=== PATIENT | male | born 1950 | race Caucasian/White ===

== ENCOUNTER 2016-11-16 17:56 | Observation (INO) | payer BC ==
--- NOTE | ~2016-11-16 | DS ---
Discharge Summary [place] [address] [facility] [place] [address] NAME: SHANTA VELÁZQUEZ : 46 STATUS : DIS IN PAT#: [id number] AGE: 66 ADM/REG DATE : 11/16/16 MR#: [id number] REPORT SERV DATE: 11/18/16 DICTATED BY: SARITA HERNANDEZ DATE: 11/17/16 REPORT STATUS : Draft TRANSCRIBED BY: MODL DATE: 11/17/16 ADMISSION DATE: 11/16/2016 DISCHARGE DATE: 11/17/2016 PRINCIPAL DIAGNOSIS: Acute exacerbation of chronic obstructive pulmonary disease. SECONDARY DIAGNOSES: Fever, type 2 diabetes. HISTORY OF PRESENT ILLNESS: Please see Dr. Szymanski's dictation on 11/16/2016. HOSPITAL COURSE: The patient was admitted with a COPD exacerbation. The patient received steroids and aerosols, actually with very quick normalization of his respiratory status. In fact, he was breathing back to baseline by 11/17/2016. He was given several doses of azithromycin and prednisone to go home with, otherwise can continue to use his home nebulized therapy. Follow up with Dr. Oni Frazier in one to two weeks. NANI/CORINNA Sarita Hernandez M.D. / [id number] CC: Jai Delacruz M.D.
--- NOTE | ~2016-11-16 | HP ---
History And Physical [place] [address] [place]. [address] NAME: SHANTA VELÁZQUEZ : 46 STATUS : ADM IN [facility]#: [id number] AGE: 66 ADM/REG DATE : 11/16/16 MR#: [id number] REPORT SERV DATE: 11/17/16 DICTATED BY: AROLDO BRAUN DATE: 11/16/16 REPORT STATUS : Draft TRANSCRIBED BY: CORINNA DATE: 11/16/16 DATE OF ADMISSION: 11/16/2016 CHIEF COMPLAINT: Fever and chills with increased shortness of breath. HISTORY OF PRESENT ILLNESS: This is a 66 years old male with a past medical history of COPD, on 3 L of home O2; history of pneumonia; and recurrent urinary tract infections. The patient presented with a chief complaint of worsening shortness of breath and flu-like symptoms for one day with, according to the patient, a whitish to greenish productive cough, sore throat, decreased p.o. intake today. He denies any dizziness. No lightheadedness. No chest pain. Also, with some complaints of myalgia/achy-like sensation. The patient denies any abdominal pain. No nausea or vomiting. The patient was having some wheezing upon arrival to the ER and was given a bronchodilator as well as some Solu-Medrol. REVIEW OF SYSTEMS: Please refer to HPI. PAST MEDICAL HISTORY: Of COPD, on 3 L of home O2; pneumonia; hypertension; type 2 diabetes; BPH; and recurring urinary tract infections. ASBESTOS MICROSCOPIST: Dr. Wilder and Dr. Frederick. FAMILY HISTORY: Bladder cancer. SOCIAL HISTORY: Quit tobacco abuse approximately four years ago. Smoked for approximately 45 years. No alcohol or illicit drugs. Currently, rehab participating in cardiac rehab as an outpatient. ALLERGIES: NO KNOWN ALLERGIES. HOME MEDICATIONS: Albuterol MDI two puffs inhaled every four hours p.r.n., albuterol neb p.r.n., ascorbic acid, aspirin 81 mg p.o. daily, Lipitor 40 mg p.o. q.h.s., Caltrate plus D 600 mg p.o. daily, cholecalciferol 1000 units p.o. daily, Breo Ellipta one puff inhaled daily, glucosamine, Victoza 0.6 mg subcu q.h.s., lisinopril 10 mg p.o. daily, metformin 250 mg p.o. b.i.d., omega-3 fatty acid 1200 mg p.o. daily, Flomax 0.4 mg p.o. q.h.s., Spiriva one cap inhaled daily, Culturelle, probiotic, nasal spray. PHYSICAL EXAMINATION: VITAL SIGNS: Temp of 100.1; blood pressure 128/67, current systolic blood pressure is 95 with a pulse of 106; respirations of 24; saturating 95% on 3 L. GENERAL: The patient is alert oriented x3, in no distress. HEENT: Pupils equal, round, and reactive to light. Extraocular muscles are intact. Moist mucous membranes. CARDIOVASCULAR: S1, S2. Regular rate and rhythm. No murmurs, rubs, or gallops. RESPIRATORY: No wheezing. No crackles. Mild decreased breath sounds at the bases. ABDOMEN: Positive bowel sounds. Soft, nontender. No rebound. No fluid wave. No History And Physical [address] [address] NAME: SHANTA VELÁZQUEZ : 46 STATUS : ADM IN [facility]#: [id number] AGE: 66 ADM/REG DATE : 11/16/16 MR#: [id number] REPORT SERV DATE: 11/17/16 DICTATED BY: AROLDO BRAUN DATE: 11/16/16 REPORT STATUS : Draft TRANSCRIBED BY: CORINNA DATE: 11/16/16 distention. EXTREMITIES: 2+ pulses bilaterally. No edema. NEURO: Cranial nerves 2 through 12 grossly intact. Moves all four extremities. No neuro focal deficits. IMAGING: Chest x-ray, no acute infiltrate per my interpretation. LABORATORY DATA: ABG with a pH of 7.45, pCO2 of 38, PO2 of 81 with FiO2 of 32. Sodium 140, potassium 4.4 with a chloride of 101, bicarb of 32, BUN of 13, creatinine 0.99 with a glucose of 126, albumin of 4.1, T bili of 1.3 with an alkaline phosphatase of 99, ALT of 22, AST of 10. White count of 8.1 with a hemoglobin of 14.9, platelet count 177. Influenza swab negative. ASSESSMENT AND PLAN: 1. Chronic obstructive pulmonary disease exacerbation. Has had some improvement while in the ER. No current wheezing at this time. However, the patient still with some complaint of dyspnea on exertion. 2. Febrile illness with flu-like symptoms. We will repeat influenza swab. We will follow up with UA. 3. Type 2 diabetes. We will currently order sliding-scale insulin for now. 4. Also, the patient will be on empiric antibiotics for chronic obstructive pulmonary disease exacerbation and febrile illness. Also, we will repeat chest x-ray in the morning after some hydration to rule out any underlying possible pneumonia and with a greenish productive cough. 5. The patient will be admitted to my colleague, who will attend to this patient's care. MANSI/MODL Aroldo Braun M.D. / [id number] CC: Jai Saha IV, M.D.
[~2016-11-16 17:56] MED LIST: ACET500CAP PO; ADVAIR250 INH; ASAB PO; CALTRA600D PO; CEFT5 PO; FISH OIL1200 MG PO; FLOMAX4 PO; FOLBEE PO; FOLIC ACID 400MCG PO; GLUCPH PO; LEVAQUIN750 MG PO; LIPITOR40 PO; MULTIPLE VIT PO; NASONEX NAS; NIASPAN750 PO; OSTEO BI-FLEX1 EACH PO; P20 PO; PRIN10 PO; PROAIR HFA INH; PROAIRRESP INH; PROBIOTIC; PROVENTSOL; PROVENTSOL INH; SPIRIVA INH; VERAMYST27.5 MCG NAS; VICTOZA SC; VICTOZA18 MG/3 ML SC; VITAMIN D31000 UNIT PO; VITC500 PO; ZITH250 PO; ZOCOR10 PO; [UNRECOGNIZED DRUG - OTHER] PO
[2016-11-16 18:30] LABS: ALLENS TEST Pos; BE (BASE EXCESS) 1.5 MEQ/L (0 +/- 2.5); CARBOXYHEMOGLOBIN 0.5 % (0-3); DEVICE NC; HCO3 (ACTUAL BICARBONATE) 25.4 MEQ/L (23-27); HEMOBLOGIN CONTENT 14.9 G/DL (14-18); INSTRUMENT SERIAL # 8087; METHEMOGLOBIN 0.1 % (0-3); O2 CONTENT 19.9 VOL% (18-24); PCO2 (CO2 TENSION) 38 MMHG (35-45); PO2 (O2 TENSION) 81 MMHG (79-93); SAMPLE Arterial; pH 7.45 (7.37-7.43)
[2016-11-16 19:22] LABS: BASOPHILS 0.4 %; BASOPHILS ABSOLUTE 0.03 10/3/uL (0.0-0.16); EOSINOPHILS 0.2 %; EOSINOPHILS ABSOLUTE 0.02 10/3/uL (0.0-0.53); ER CBC TAT 0 Hrs 08 Mins; HEMATOCRIT 45.3 % (40.0-51.0); HEMOGLOBIN 14.9 g/dL (13.6-17.8); IMMATURE GRANULOCYTES 0.2 %; IMMATURE GRANULOCYTES ABSOLUTE 0.02 10/3/uL (0.0-0.11); LYMPHOCYTES ABSOLUTE 0.57 10/3/uL (0.67-4.30); MEAN CORPUS HGB CONC 32.9 g/dL (32.0-36.0); MEAN CORPUSCULAR HEMOGLOB 29.4 pg (26.0-34.0); MEAN CORPUSCULAR VOLUME 89.3 fL (80-100); MEAN PLATELET VOLUME 10.5 fL (9.2-13.0); MONOCYTES 6.9 %; MONOCYTES ABSOLUTE 0.56 10/3/uL (0.21-1.20); NEUTROPHILS 85.3 %; NEUTROPHILS ABSOLUTE 6.89 10/3/uL (2.02-8.40); PLATELET COUNT 177 10/3/uL (150-400); RBC DISTRIBUTION WIDTH 14.3 % (12.0-16.0); RED CELL COUNT 5.07 10/6/uL (4.7-6.1); WHITE BLOOD CELLS 8.1 10/3/uL (4.5-10.5)
[2016-11-16 19:25] LABS: MANUAL DIFF NO %
[2016-11-16 19:32] LABS: A/G RATIO 1.4 (0.7-1.9); ALBUMIN 4.1 G/DL (3.5-5.0); BUN (BLOOD UREA NITROGEN) 13 MG/DL (6-23); CALCIUM, SERUM 9.4 MG/DL (8.5-10.4); CHLORIDE, SERUM 101 MMOL/L (96-112); CO2 (CARBON DIOXIDE) 32 MMOL/L (24-34); CREATININE 0.99 MG/DL (0.70-1.30); GFR AFRICAN AMERICAN 90 ML/MIN (>=60); GFR NON AFRICAN AMERICAN 78 ML/MIN (>=60); POTASSIUM, SERUM 4.4 MMOL/L (3.5-5.3); SGOT(AST) 10 U/L (5-40); SGPT(ALT) 22 U/L (5-65); SODIUM, SERUM 140 MMOL/L (135-148); TOTAL BILIRUBIN 1.3 MG/DL (0-1.2); TOTAL PROTEIN 7.1 G/DL (6.0-8.5)
[2016-11-16 19:33] LABS: ALKALINE PHOSPHATASE 99 U/L (45-117); GLUCOSE, SERUM 126 MG/DL (60-99)
[2016-11-16] MEDS ORDERED: PRIN10 PO (19:43)
[2016-11-16] MEDS ORDERED: GLUCPH PO (19:44)
[2016-11-16] MEDS ORDERED: VITC500 PO (19:50)
[2016-11-16] MEDS ORDERED: CALTRA600D PO (19:50)
[2016-11-16] MEDS ORDERED: FISH OIL1200 MG PO (19:50)
[2016-11-16] MEDS ORDERED: VITAMIN D31000 UNIT PO (19:50)
[2016-11-16] MEDS ORDERED: BREO ELLIPTA INH (19:51)
[2016-11-16] MEDS ORDERED: SPIRIVA INH (19:51)
[2016-11-16] MEDS ORDERED: OSTEO BI-FLEX1 EACH PO (19:51)
[2016-11-16] MEDS ORDERED: FLOMAX4 PO (19:52)
[2016-11-16 19:53] LABS: INFLUENZA A SCREEN NEGATIVE (NEGATIVE); INFLUENZA B SCREEN NEGATIVE (NEGATIVE)
[2016-11-16] MEDS ORDERED: LIPITOR40 PO (19:53)
[2016-11-16] MEDS ORDERED: CULTURELLE PROBIOTIC PO (19:54)
[2016-11-16] MEDS ORDERED: ASAB PO (19:54)
[2016-11-16] MEDS ORDERED: VERAMYST NASAL SPRAY NAS (19:55)
[2016-11-16] MEDS ORDERED: PROAIR HFA INH (19:55)
[2016-11-16] MEDS ORDERED: VICTOZA18 MG/3 ML SC (19:55)
[2016-11-16] MEDS ORDERED: ALBUTEROL0.083 % INH (19:56)
[2016-11-16 22:12] LABS: ASCORBIC ACID (UR NOT ORDER) 40 (NEG); BILIRUBIN, URINE NEGATIVE (NEG); ER URINALYSIS TAT 0 Hrs 13 Mins; KETONE, URINE TRACE MG/DL (NEG); LEUKOCYTE ESTERASE(NOT OR NEG (NEG); NITRITE (URINE) NEG (NEG); WBC (NOT ORDERED) (RFLEX) 2 (0-5)
[2016-11-16 23:53] LABS: PROCALCITONIN <0.05 ng/mL (<0.5)
[2016-11-17 05:25] LABS: BASOPHILS 0.4 %; BASOPHILS ABSOLUTE 0.02 10/3/uL (0.0-0.16); EOSINOPHILS 0 %; HEMATOCRIT 42.3 % (40.0-51.0); HEMOGLOBIN 13.8 g/dL (13.6-17.8); IMMATURE GRANULOCYTES 0.2 %; IMMATURE GRANULOCYTES ABSOLUTE 0.01 10/3/uL (0.0-0.11); MEAN CORPUS HGB CONC 32.6 g/dL (32.0-36.0); MEAN CORPUSCULAR VOLUME 88.9 fL (80-100); MEAN PLATELET VOLUME 10.8 fL (9.2-13.0); MONOCYTES 1.4 %; MONOCYTES ABSOLUTE 0.07 10/3/uL (0.21-1.20); NEUTROPHILS ABSOLUTE 4.57 10/3/uL (2.02-8.40); PLATELET COUNT 172 10/3/uL (150-400); RBC DISTRIBUTION WIDTH 14.2 % (12.0-16.0); RED CELL COUNT 4.76 10/6/uL (4.7-6.1)
[2016-11-17 05:26] LABS: MANUAL DIFF NO %
[2016-11-17 05:28] LABS: CALCIUM, SERUM 8.7 MG/DL (8.5-10.4); CHLORIDE, SERUM 102 MMOL/L (96-112); CREATININE 0.99 MG/DL (0.70-1.30); GFR AFRICAN AMERICAN 90 ML/MIN (>=60); GFR NON AFRICAN AMERICAN 78 ML/MIN (>=60); POTASSIUM, SERUM 4.3 MMOL/L (3.5-5.3); SODIUM, SERUM 140 MMOL/L (135-148)
[2016-11-17 05:32] LABS: CO2 (CARBON DIOXIDE) 27 MMOL/L (24-34)
[2016-11-17 05:33] LABS: BUN (BLOOD UREA NITROGEN) 18 MG/DL (6-23); GLUCOSE, SERUM 200 MG/DL (60-99)
[2016-11-17] MEDS ORDERED: ZITH250 PO (14:21)
[2016-11-17] MEDS ORDERED: P20 PO (14:22)
== END 2016-11-17 16:35 | disposition home or self-care (01) ==
LOC: ER 17:56 → 7NO 21:29
PROVIDERS: Hospitalist; Internal Medicine
DX: J44.1 Chronic obstructive pulmonary disease with (acute) exacerbation (principal); I10 Essential (primary) hypertension; N40.1 Benign prostatic hyperplasia with lower urinary tract symptoms; N39.0 Urinary tract infection, site not specified; E11.9 Type 2 diabetes mellitus without complications; Z99.81 Dependence on supplemental oxygen; Z87.01 Personal history of pneumonia (recurrent); Z87.891 Personal history of nicotine dependence; Z79.51 Long term (current) use of inhaled steroids; Z79.82 Long term (current) use of aspirin; Z79.84 Long term (current) use of oral hypoglycemic drugs; Z79.899 Other long term (current) drug therapy
CPT/HCPCS: 36600; 71010; 80048; 80053; 81001; 82805; 82962; 83735; 84145; 85025; 87040; 87070; 87205; 87449; 87804; 87880; 93005; 94640; 96365; 96366; 96372; 96375; 99285; A9270-GY; G0378; J0456; J2920; J2930

== ENCOUNTER 2016-11-27 10:53 | Inpatient (IN) | payer BC ==
--- NOTE | ~2016-11-27 | HP ---
History And Physical [place] [address] [facility] [place]. [address] NAME: SHANTA VELÁZQUEZ : 46 STATUS : ADM IN [facility]#: [id number] AGE: 66 ADM/REG DATE : 11/27/16 MR#: [id number] REPORT SERV DATE: 11/27/16 DICTATED BY: JAMARCUS MCCLURE DATE: 11/27/16 REPORT STATUS : Draft TRANSCRIBED BY: CORINNA DATE: 11/27/16 DATE OF ADMISSION: 11/27/2016 OUTPATIENT BUFFING MACHINE TENDER: Favian Wilder M.D. HISTORY OF PRESENT ILLNESS: This is a 66-year-old male who comes in for shortness of breath. The patient has a history of COPD, uses 3 L of oxygen at night and on moderate exertion. His baseline is that if he just stays in the house at rest or just walking around the house, he does not even need any oxygen. The patient was recently admitted and discharged from 11/16/2016 to 11/17/2016 here with COPD exacerbation. He was discharged on Zithromax and steroids. After those medications, he noted that he was not improving much, and five days prior to admission, he felt worse. The patient tried to go to his cardiac rehab, but he was not able to do much and he even had somebody help him walk home so that he would not pass out, but he denies any near-syncopal or syncopal episode. It is more of a precaution. His was telling him to go to the emergency room. However, he put it off until today because he has a followup with Dr. Frazier and Dr. Frazier saw the patient. The patient was in labored breathing, and the saturation was hovering between 86%-90% on 3 L. He gave one dose of albuterol and sent the patient for admission as he noted that the patient also has a presyncopal episode. The patient denies any fever, chills, or sweats. He had decreased appetite for the past week or so, but there is no abdominal pain, nausea, or vomiting. No chest pains or palpitations. No urinary or bowel changes. He does have a cough productive of clear phlegm. He did admit that his and several other people that he came into contact with also have some kind of respiratory symptoms. There is no epistaxis. There is no actual syncopal episode, and the rest of the 14-point review of system is negative except as above. PAST MEDICAL HISTORY: Includes the above. Hypertension, diabetes, BPH, pneumonia, and UTIs in the past. ALLERGIES: HE HAS NO KNOWN DRUG ALLERGIES. MEDICATIONS: Include Trulicity, lisinopril, metformin, fatty acid, Advair, vitamin D3, Spiriva, Flomax, Lipitor, aspirin, and ProAir. FAMILY HISTORY: Father of gunshot wound. Brother with history of colon cancer. There is also family history of bladder cancer. SOCIAL HISTORY: The patient rarely drinks alcohol. Smoked for approximately 45 years, but quit about four years ago. Denies recreational drug use. PHYSICAL EXAMINATION: GENERAL: The patient is alert and oriented x3, in mild cardiorespiratory distress. VITAL SIGNS: Include temperature of 99.6, blood pressure of 120/80, respiration of 20, pulse rate of 76. NECK: He has supple neck. No JVD or carotid bruits. No lymphadenopathy. HEENT: [place] conjunctivae. Anicteric sclerae. No pharyngeal erythema. History And Physical [address] [address] NAME: SHANTA VELÁZQUEZ : 46 STATUS : ADM IN [facility]#: [id number] AGE: 66 ADM/REG DATE : 11/27/16 MR#: [id number] REPORT SERV DATE: 11/27/16 DICTATED BY: JAMARCUS MCCLURE DATE: 11/27/16 REPORT STATUS : Draft TRANSCRIBED BY: MODAntony DATE: 11/27/16 LUNGS: He has fair to poor air entry. Some wheezes. No crackles appreciated. HEART: Regular rate and rhythm. No murmurs appreciated. ABDOMEN: Positive bowel sounds. Soft, nontender, no masses. EXTREMITIES: Fair pulses. No edema. NEURO: Nonlocalizing. LABORATORIES: Are all pending right now. ASSESSMENT: 1. Acute on chronic respiratory failure. 2. Chronic obstructive pulmonary disease exacerbation. 3. Diabetes. 4. Hypertension. 5. Benign prostatic hyperplasia. PLAN: The patient is most likely having another exacerbation of his COPD. We will admit and check labs including ABG and chest x-ray. Place on steroids and bronchodilators. We will get Pulmonary involved as the patient seems to be getting his exacerbations more frequently now. We will defer antibiotics to them as the patient has been on it recently. We will continue his home medications and place on subcu insulin protocol and p.r.n. hydralazine. This has been explained to him, and he agreed and understood the plan. MINH/CORINNA Jamarcus Mcclure M.D. / [id number] CC: Jai Hayden M.D.
--- NOTE | ~2016-11-27 | DS ---
Discharge Summary [facility] [address] [place]. [address] NAME: SHANTA VELÁZQUEZ : 46 STATUS : DIS IN PAT#: [id number] AGE: 66 ADM/REG DATE : 11/27/16 MR#: [id number] REPORT SERV DATE: 12/02/16 DICTATED BY: JAMARCUS MCCLURE DATE: 12/01/16 REPORT STATUS : Draft TRANSCRIBED BY: CORINNA DATE: 12/01/16 ADMISSION DATE: 11/27/2016 DISCHARGE DATE: 12/01/2016 CONSULTING PHYSICIAN: Dr. Allen for Pulmonary covering for Dr. Wilder outpatient bulk coolers installer. FINAL DIAGNOSES: 1. Chronic respiratory failure. 2. COPD exacerbation. 3. Diabetes. 4. Hypertension. 5. BPH. DIAGNOSTIC EXAMS: Chest x-ray showing prominent bronchovascular markings similar to 11/16/2016. No infiltrate or effusion. Severe emphysematous changes. HOSPITAL COURSE: Please refer to the H and P done by myself dated on 11/27/2016. Briefly, this is a 66-year-old male, who comes in for shortness of breath. The patient has a history of COPD and uses 3 L of oxygen at night and occasionally during the day. The patient has been getting weaker and increasing dyspnea on exertion. The patient went to see Dr. Frazier, and he was found to be in labored breathing and was sent here. The patient was seen to have COPD exacerbation. Fortunately, he does not have any pneumonia going on. We placed him on steroids, more inhalers, and we got Pulmonary consult. The patient's bronchodilators were changed and since then we have seen slow improvement on him. Initially when he came in, it took him about 45 minutes to finish taking a shower, and on discharge just only 15 minutes. He expresses wishes to go home. He said he is feeling much better and that he will just follow up with Dr. Frazier and Dr. Wilder. We got him to ambulate on room air, it dropped to 85% but on ambulation, it was 95% on 3 L. The patient said that he has oxygen at home that he can just use that one, and he believes that he will continue to get better. So with this, we will be discharging the patient with the above diagnosis once we have clearance from Pulmonary, he will be on the following medications; Trulicity as recently given by Dr. Frazier from [facility], aspirin 81 mg a day, Lipitor 40 mg at bedtime, calcium plus D 600 mg a day, vitamin D 1000 units a day, omega-3 fatty acid 1200 mg a day, Daliresp 500 mcg a day, Flomax 0.4 mg at bedtime, metformin 250 mg twice a day, ProAir 2 puffs every 4 hours p.r.n., Osteo Bi-Flex 1 tablet a day, Advair 250-50 two puffs twice a day, Spiriva one capsule inhaled a day, probiotics one capsule at bedtime, Veramyst one spray at bedtime, and a tapering dose of steroids at 40 mg p.o. daily for three days, then 30 mg for 3 days, then 20 mg for three days, then 10 mg for three days, then 5 mg for three days. FOLLOWUP: The patient will follow up with Dr. Frazier and Dr. Wilder in one to two weeks. This has been explained to him and he agreed and understood the plan. TIME SPENT: 35 minutes. Discharge Summary [address] [address] NAME: SHANTA VELÁZQUEZ : 46 STATUS : DIS IN PAT#: [id number] AGE: 66 ADM/REG DATE : 11/27/16 MR#: [id number] REPORT SERV DATE: 12/02/16 DICTATED BY: JAMARCUS MCCLURE DATE: 12/01/16 REPORT STATUS : Draft TRANSCRIBED BY: CORINNA DATE: 12/01/16 MINH/CORINNA Jamarcus Mcclure M.D. / [id number] CC: Jai Hayden M.D.
--- NOTE | ~2016-11-27 | CN ---
Consultation Report [facility] [address] [place]. [address] NAME: JON VELÁZQUEZ : 46 STATUS : ADM IN PAT#: [id number] AGE: 66 ADM/REG DATE : 11/27/16 MR#: [id number] REPORT SERV DATE: 11/29/16 DICTATED BY: TE STONE DATE: 11/28/16 REPORT STATUS : Draft TRANSCRIBED BY: MODAntony DATE: 11/28/16 CONSULTATION NOTE DATE OF CONSULTATION: 11/28/2016 CHIEF COMPLAINT: Shortness of breath in a patient with known severe COPD. HISTORY OF PRESENT ILLNESS: Mr. Jon Velázquez is a very pleasant 66-year-old white male with a past medical history significant for very severe COPD with chronic oxygen supplementation, pulmonary nodules, and gastroesophageal reflux disease, who presents to [facility] as a direct admit for complaints related to his breathing. It should be noted that Mr. Velázquez was hospitalized as recently as July of this year when he was treated for an exacerbation of COPD as well as his pneumonia. Mr. Velázquez is followed by Dr. Wilder in our outpatient clinic. He was seen as recently as September of this year. He is on a pulmonary regimen of albuterol, Breo, and Spiriva, of which he is compliant. He is on chronic oxygen supplementation at 3 L. He participates in pulmonary rehab three times a week. The patient quit smoking over six years ago, prior to this time, he smoked two to two and half packs of cigarettes a day for forty five years. He largely denies symptomatology related to obstructive sleep apnea. He describes his exercise tolerance as being stable in nature. Again, Mr. Velázquez was hospitalized in late 07/2016 when he was treated for an exacerbation of COPD as well as pneumonia. He did eventually transitioned home and did fairly well. That being said, he did present to [facility] approximately ten days ago with symptoms consistent with an acute exacerbation of COPD. He was given azithromycin and steroids with some improvement. On a recent followup with Dr. Frazier, he was noted to have increased work of breathing and as such was admitted to [facility] for further workup. The patient continues to have some shortness of breath and as such has been referred to the Pulmonary Service for further assessment. Currently, the patient's main pulmonary complaint is shortness of breath. This is worse on exertion and relieved by rest. He is not producing any purulent sputum. He is not overtly wheezing today. He has had a recent pneumonia. He denies any fever or chills. He has had no GI complaints. He does have a known diagnosis of very severe COPD. He has undergone previous workup for lung reduction surgery as well as even transplant. The patient currently denies any murmurs, angina, or palpitations. He has had previous workup for coronary artery disease, which was negative by his report. In regard to constitutional symptoms, he currently denies nausea, vomiting, chest pain, abdominal pain, or edema. He has had no fever or chills. Consultation Report [place] [id number] [facility] [place]. [address] NAME: JON VELÁZQUEZ : 46 STATUS : ADM IN [facility]#: [id number] AGE: 66 ADM/REG DATE : 11/27/16 MR#: [id number] REPORT SERV DATE: 11/29/16 DICTATED BY: TE STONE DATE: 11/28/16 REPORT STATUS : Draft TRANSCRIBED BY: CORINNA DATE: 11/28/16 PAST MEDICAL HISTORY: 1. Very severe COPD. 2. Pulmonary nodules. 3. Chronic hypoxemic respiratory failure. 4. Rhinitis. 5. Gastroesophageal reflux disease. 6. Type 2 diabetes. 7. Dyslipidemia. 8. Benign prostatic hypertrophy. 9. Pneumonia. PAST SURGICAL HISTORY: 1. Excision of cyst from his tailbone. 2. Tonsillectomy. 3. Excision of a sebaceous cyst from his neck. FAMILY HISTORY: The patient denies a family history of lung disease. SOCIAL HISTORY: The patient is with two children. His is currently at bedside. He previously worked in law enforcement. He denies any known exposures to dust, silica, or asbestos. TOBACCO/ALCOHOL: As previously mentioned, the patient quit smoking approximately six years ago, prior to this time, he smoked two to two and half packs a day for a period of forty five years. He denies any recent alcohol or illicit drug use. MEDICATIONS: 1. Albuterol. 2. Atorvastatin 40 mg. 3. Breo Ellipta. 4. Victoza. 5. Metformin 500 mg. 6. Flomax 0.4 mg. 7. Spiriva. ALLERGIES: THE PATIENT HAS NO KNOWN DRUG ALLERGIES. REVIEW OF SYSTEMS: Complete review of systems was performed with pertinent positives and negatives contained within the body of the HPI. PHYSICAL EXAMINATION: VITAL SIGNS: Blood pressure is 129/75, heart rate is 91, T-max is 98.2, respiratory rate is 16, SpO2 is 92% on 3 L. GENERAL: The patient is a pleasant, well-nourished/well-developed male, who is not Consultation Report [address] [address] NAME: JON VELÁZQUEZ : 46 STATUS : ADM IN PAT#: [id number] AGE: 66 ADM/REG DATE : 11/27/16 MR#: [id number] REPORT SERV DATE: 11/29/16 DICTATED BY: TE STONE DATE: 11/28/16 REPORT STATUS : Draft TRANSCRIBED BY: CORINNA DATE: 11/28/16 currently exhibiting any signs of acute distress. Skin: Skin with appropriate texture and turgor. No rashes, lesions, or ulcers. Nails are clear without cyanosis or clubbing. HEENT: Head: Skull is normocephalic/atraumatic. Facies symmetric. No masses or lesions. Eyes: Sclera anicteric, conjunctiva pink without exudates. Extra ocular movements intact. Pupils are equal, round, reactive to light. Ears: Auricles and tragus without pain to palpation. Hearing is grossly intact. Nose: Bilateral nasal patency. Sinuses without tenderness upon palpation. Throat: Dental implants in the uppers. Lips, oral mucosa, tongue, palate, and pharynx pink and moist without lesions. Uvula rises equally on phonation. Tongue midline without deviation. NECK: Neck supple. Trachea midline. No cervical lymphadenopathy appreciated. THORAX/LUNGS: Thorax is symmetric with equal chest rise. Very diminished breath sounds throughout. No rales, wheezes, rhonchi CARDIOVASCULAR: Regular rate and rhythm. No murmurs, rubs, or gallops. Anterior chest without thrills, heaves, or lifts. ABDOMEN: Soft. Non-distended, non-tender. Active bowel sounds in all four quadrants. No hepatosplenomegaly noted. PERIPHERAL VASCULAR: No edema. No varicosities, stasis changes, open sores, ulcerations, or phlebitis. 2+ pulses in radial and dorsalis pedis. MUSCULOSKELETAL: Full AROM and PROM in all joints. No evidence of erythema, deformity, or crepitus. NEUROLOGIC: CN II - XII grossly intact. Good muscle bulk and tone bilaterally. Strength 5/5 throughout. PSYCHIATRIC: Patient demonstrates good judgment and insight. Pt is A&O x 3. ACCESSORY DATA: Reveals a creatinine of 0.86. Arterial blood gas, pH of 7.42, PaCO2 of 46, PaO2 of 68, and a bicarb of 29.0 on 3 L nasal cannula. Procalcitonin is negative at 0.05. White blood cell count of 7200, hemoglobin and hematocrit are 15.5 and 42.7. Chest x-ray reveals no acute cardiopulmonary process. CT of the chest performed 08/2016 reveals severe emphysematous changes in the apices, pulmonary nodule is noted. IMPRESSION: 1. Acute exacerbation of very severe chronic obstructive pulmonary disease. 2. Pulmonary nodules. 3. Chronic hypoxemic respiratory failure. PLAN: At this time, the patient has been appropriately placed on IV Solu-Medrol and breathing treatments. We will adjust these accordingly. Moving forward, we will consider starting him on nebulized medications given his exceedingly poor FEV1. We have encouraged him to continue participating in pulmonary rehab. In regard to his recurrent exacerbations, we have spoken to him about initiating roflumilast or even suppressive antibiotics. We will confer with Dr. Wilder, as he will follow him closely as an outpatient. The aforementioned impression and plan has been discussed with Dr. Allen, who will follow Consultation Report [address] [place]. [address] NAME: JON VELÁZQUEZ : 46 STATUS : ADM IN [facility]#: [id number] AGE: 66 ADM/REG DATE : 11/27/16 MR#: [id number] REPORT SERV DATE: 11/29/16 DICTATED BY: TE STONE DATE: 11/28/16 REPORT STATUS : Draft TRANSCRIBED BY: MODAntony DATE: 11/28/16 further recommendations. We thank you for this consult and look forward to participating in the care of Mr. Velázquez. GBS/MODL Te Stone PA-C / [id number] CC: Jai Hayden M.D.
[~2016-11-27 10:53] MED LIST changes: +ALBUTEROL0.083 % INH; +BREO ELLIPTA INH; +CULTURELLE PROBIOTIC PO; +VERAMYST NASAL SPRAY NAS
[2016-11-27 11:45] LABS: HEMOGLOBIN 15.5 g/dL (13.6-17.8); MEAN CORPUS HGB CONC 32.8 g/dL (32.0-36.0); MEAN CORPUSCULAR HEMOGLOB 29.1 pg (26.0-34.0); MEAN CORPUSCULAR VOLUME 88.7 fL (80-100); MEAN PLATELET VOLUME 9.8 fL (9.2-13.0); PLATELET COUNT 189 10/3/uL (150-400); RBC DISTRIBUTION WIDTH 13.5 % (12.0-16.0); RED CELL COUNT 5.32 10/6/uL (4.7-6.1)
[2016-11-27 11:51] LABS: HEMATOCRIT 47.2 % (40.0-51.0); MANUAL DIFF YES %; WHITE BLOOD CELLS 7.2 10/3/uL (4.5-10.5)
[2016-11-27 11:57] LABS: INTERNATIONAL NORMAL RATI 1.1 UNITS (-); PROTIME (NOT ORD) 13.8 SEC (12.0-14.5)
[2016-11-27 11:58] LABS: PARTIAL THROMBO TIME 27.9 SEC (22.5-37.2)
[2016-11-27 12:04] LABS: A/G RATIO 1.1 (0.7-1.9); ALBUMIN 3.8 G/DL (3.5-5.0); CHLORIDE, SERUM 106 MMOL/L (96-112); CO2 (CARBON DIOXIDE) 29 MMOL/L (24-34); CREATININE 0.86 MG/DL (0.70-1.30); GFR AFRICAN AMERICAN 103 ML/MIN (>=60); GFR NON AFRICAN AMERICAN 89 ML/MIN (>=60); GLOBULIN 3.5 G/DL (2.5-4.1); POTASSIUM, SERUM 4.1 MMOL/L (3.5-5.3); SGOT(AST) 12 U/L (5-40); SGPT(ALT) 30 U/L (5-65); SODIUM, SERUM 140 MMOL/L (135-148); TOTAL PROTEIN 7.3 G/DL (6.0-8.5)
[2016-11-27 12:05] LABS: ALKALINE PHOSPHATASE 86 U/L (45-117); BUN (BLOOD UREA NITROGEN) 12 MG/DL (6-23); CALCIUM, SERUM 9.8 MG/DL (8.5-10.4); GLUCOSE, SERUM 120 MG/DL (60-99); TOTAL BILIRUBIN 0.8 MG/DL (0-1.2)
[2016-11-27 12:06] LABS: ALLENS TEST Pos; BE (BASE EXCESS) 3.8 MEQ/L (0 +/- 2.5); CARBOXYHEMOGLOBIN 0.7 % (0-3); DEVICE NC; INSTRUMENT SERIAL # 11843; METHEMOGLOBIN 0.3 % (0-3); O2 CONTENT 20.4 VOL% (18-24); PCO2 (CO2 TENSION) 46 MMHG (35-45); PO2 (O2 TENSION) 68 MMHG (79-93); SAMPLE Arterial; pH 7.42 (7.37-7.43)
[2016-11-27 12:36] LABS: EOSINOPHILS 1 %; EOSINOPHILS ABSOLUTE (CALC) 0.07 10/3/uL (0.0-0.53); LYMPHOCYTES 24 %; LYMPHOCYTES ABSOLUTE (CALC) 1.73 10/3/uL (0.67-4.30); MONOCYTES 9 %; MONOCYTES ABSOLUTE (CALC) 0.65 10/3/uL (0.21-1.20); NEUTROPHILS ABSOLUTE (CALC) 4.75 10/3/uL (2.02-8.40); PLATELET ESTIMATE ADQ (ADEQUATE); RBC MORPHOLOGY NORM (NORMAL); SEGMENTED NEUTROPHIL (0) 66 %; TOTAL NUCLEATED CELLS 100
[2016-11-27 12:40] LABS: PROCALCITONIN <0.05 ng/mL (<0.5)
[2016-11-27 15:19] LABS: ASCORBIC ACID (UR NOT ORDER) 40 (NEG); BILIRUBIN, URINE NEGATIVE (NEG); KETONE, URINE NEGATIVE (NEG); LEUKOCYTE ESTERASE(NOT OR NEG (NEG); WBC (NOT ORDERED) (RFLEX) < 1 (0-5)
[2016-12-01] MEDS ORDERED: DALIRESP500 MCG PO (12:19)
[2016-12-01] MEDS ORDERED: BROVANA15 MCG INH (12:24)
[2016-12-01] MEDS ORDERED: ADVAIR250 INH (12:27)
== END 2016-12-01 16:28 | disposition home or self-care (01) | DRG 190 ==
LOC: 2SO 10:53
PROVIDERS: Internal Medicine
DX: J44.1 Chronic obstructive pulmonary disease with (acute) exacerbation (principal); J96.21 Acute and chronic respiratory failure with hypoxia; Z99.81 Dependence on supplemental oxygen; I10 Essential (primary) hypertension; E11.9 Type 2 diabetes mellitus without complications; N40.0 Benign prostatic hyperplasia without lower urinary tract symptoms; K21.9 Gastro-esophageal reflux disease without esophagitis; E78.5 Hyperlipidemia, unspecified; Z80.0 Family history of malignant neoplasm of digestive organs; Z80.52 Family history of malignant neoplasm of bladder; Z98.890 Other specified postprocedural states
CPT/HCPCS: 36600; 71010; 80053; 81001; 82805; 82962; 84145; 85025; 85610; 85730; 93005; 94640; A9270-GY; J2920; J2930